=== PATIENT | female | born 1955 | race Caucasian/White ===

== ENCOUNTER 2019-04-03 10:53 | Emergency (ER) | payer OTHER ==
[2019-04-03 11:13] VITALS: BP 130/88
--- NOTE | 2019-04-03 11:20 | UC ---
Respiratory Complaint HPI - HPI Summary HPI Summary: cough for 2 wks., worse at night and after taking deep breath. Nothing makes it better. feels antibx may help. has many environmental allergies and has been exposed to 2nd hand smoke recently. feels pressure in eyes and ears when coughing. - History of Current Complaint Chief Complaint: UCRespiratory Stated Complaint: ALLERGIES Time Seen by Provider: 04/03/19 11:19 Hx Obtained From: Patient Pain Intensity: 3 Pain Scale Used: 0-10 Numeric Character: Cough: Nonproductive Associated Signs And Symptoms: Negative: Dyspnea, Fever - Allergies/Home Medications Allergies/Adverse Reactions: Allergies Allergy/AdvReac Type Severity Reaction Status Date / Time cefuroxime [From Ceftin] Allergy Rash Verified 04/03/19 11:13 Sulfa (Sulfonamide Allergy Rash Verified 04/03/19 11:13 Antibiotics) PMH/Surg Hx/FS Hx/Imm Hx - Additional Past Medical History Additional PMH: allergies Previously Healthy: Yes - Surgical History Surgical History: None - Social History Alcohol Use: Occasionally Substance Use Type: None Smoking Status (MU): Never Smoked Tobacco Review of Systems All Other Systems Reviewed And Are Negative: Yes Constitutional: Negative: Fever, Chills, Fatigue Skin: Negative: Rash ENT: Positive: Ear Ache, Sinus Congestion. Negative: Sore Throat, Sinus Pain/ Tenderness Respiratory: Positive: Cough Cardiovascular: Positive: Negative Neurological: Negative: Headache Physical Exam Triage Information Reviewed: Yes Appearance: Well-Appearing Vital Signs: Initial Vital Signs Temp 97.8 F 04/03/19 11:09 Pulse 81 04/03/19 11:09 Resp 12 04/03/19 11:09 BP 130/88 04/03/19 11:09 Pulse Ox 99 04/03/19 11:09 Vital Signs Reviewed: Yes Eyes: Positive: Conjunctiva Clear ENT: Positive: Pharyngeal erythema, TMs normal, Uvula midline Neck: Positive: Supple, Nontender, No Lymphadenopathy Respiratory Exam: Normal, Other - +coughing during visit, nonproductive, with inhale only Cardiovascular Exam: Normal Neurological: Positive: Alert Skin: Negative: Rashes Respiratory Course/Dx - Course Course Of Treatment: Cough and allergy symptoms x2 wks. Vitals good. Exam was essentially unremarkable. Likely acute bronchitis with overlying allergy symptoms. Will tx but we discussed these are not indications for antibx, she was amenable. No concerns for pneumonia. - Differential Dx/Diagnosis Differential Diagnosis/HQI/PQRI: Asthma, Bronchitis, Other Provider Diagnosis: Acute bronchitis Discharge ED - Sign-Out/Discharge Documenting (check all that apply): Patient Departure All imaging exams completed and their final reports reviewed: No Studies - Discharge Plan Condition: Good Disposition: HOME Prescriptions: Acetaminoph/Cod 120/12 mg LIQ* [Tylenol/Codeine 120/12 LIQ*] 10 ml PO Q4H PRN 5 Days #50 ml MDD mdd: 10mL PRN Reason: Cough Albuterol HFA INHALER* [Ventolin HFA Inhaler*] 2 puff INH Q4H PRN #1 mdi PRN Reason: Cough methylPREDNISolone [Medrol] 4 mg PO DAILY #1 [id number] Patient Education Materials: Acute Bronchitis (ED) Referrals: No Primary Care Phys,NOPCP [Primary Care Provider] - Additional Instructions: Please follow up with pcp if not improving. There is no indication for antibiotics. - Billing Disposition and Condition Condition: GOOD Disposition: Home
== END 2019-04-03 11:46 | disposition home or self-care (01) ==
LOC: UCEAST 10:53
DX: J20.9 Acute bronchitis, unspecified (principal); J39.2 Other diseases of pharynx; H92.09 Otalgia, unspecified ear; R09.81 Nasal congestion; Z88.2 Allergy status to sulfonamides; Z88.8 Allergy status to other drugs, medicaments and biological substances
CPT/HCPCS: 99202; G0463